=== PATIENT | male | born 1980 | race Caucasian/White ===

== ENCOUNTER 2016-10-12 06:23 | Emergency (ER) | payer OTHER ==
[~2016-10-12] VITALS: Ht 190.5 cm; Wt 96.0 kg
[2016-10-12 06:37] VITALS: BP 118/72
[2016-10-12 07:28] LABS: EOSINOPHILS % 2.7 % (0.0-5.0); HEMATOCRIT. 40.5 % (42.0-52.0); LYMPHOCYTES % 42.5 % (20.0-50.0); MEAN CORPUSCULAR HEMOGLOBIN 31.9 pg (28.0-32.0); MEAN PLATELET VOLUME 7.8 fl (7.4-10.4); NEUTROPHILS % 45.8 % (40.0-76.0); PLATELET 196 x1000/uL (130-400); RED CELL DISTRIBUTION WIDTH 13.2 % (11.6-14.6)
[2016-10-12 07:31] LABS: CARBON DIOXIDE 30 mEq/L (21-32); CHLORIDE 105 mEq/L (98-107)
[2016-10-12] MEDS ORDERED: LORAZEPAM 2MG/ML CPJ ONE ×2 (07:52→08:07)
== END 2016-10-12 09:39 | disposition home or self-care (01) ==
LOC: ER 06:23
DX: G62.9 Polyneuropathy, unspecified (principal); M54.17 Radiculopathy, lumbosacral region; M21.371 Foot drop, right foot
CPT/HCPCS: 36415; 72131; 80053; 85025; 99285; J2060